=== PATIENT | female | born 1965 ===

== ENCOUNTER 2021-04-13 08:15 | Inpatient (IN) | payer OTHER ==
[~2021-04-13] VITALS: Ht 165.1 cm; Wt 123.4 kg
[2021-04-13] MEDS ORDERED: EFFEXOR XR150 MG PO (09:58)
[2021-04-13] MEDS ORDERED: CLONAZEPAM2 MG PO (09:58)
[2021-04-13] MEDS ORDERED: SEROQUEL400 MG PO (09:59)
[2021-04-13] MEDS ORDERED: PROSOM PO (09:59)
[2021-04-13] MEDS ORDERED: SYNTHROID125 MCG PO (10:00)
[2021-04-18] MEDS ORDERED: ESTAZOLAM2 MG (11:48)
[2021-04-18] MEDS ORDERED: FLONASE16 GM (11:49)
[2021-04-18] MEDS ORDERED: ZANAFLEX2 MG (11:49)
[2021-04-18] MEDS ORDERED: DICLOFENAC POTA50 MG (11:49)
[2021-04-18] MEDS ORDERED: LISINOPRIL10 MG (11:49)
[2021-04-18] MEDS ORDERED: GABAPENTIN100 M2 (11:49)
[2021-04-18] MEDS ORDERED: LEVOCETIRIZINE D5 MG (11:49)
[2021-04-18] MEDS ORDERED: ATORVASTATIN CA40 MG (11:49)
[2021-04-18] MEDS ORDERED: SPIRIVA RESPIMAT4 G1 (11:50)
[2021-04-20] MEDS ORDERED: ELIQUIS2.5 MG PO (18:00)
[2021-04-20] MEDS ORDERED: PERCOCET 5-3251 EACH PO (18:00)
[2021-04-20] MEDS ORDERED: DUI500 PO (18:00)
== END 2021-04-20 19:45 | disposition home or self-care (01) | DRG 470 ==
LOC: SURG 04-18 07:15 → O/R 04-18 07:15 → SURH 04-18 08:15 → SURG 04-18 14:45
PROVIDERS: ADMIT Orthopaedic Surgery; ATTEND Orthopaedic Surgery
PROC: 0SRC0J9 Replacement of Right Knee Joint with Synthetic Substitute, Cemented, Open Approach (ICD-10-PCS; principal; 2021-04-18 09:45)
DX: M17.11 Unilateral primary osteoarthritis, right knee (principal); M81.0 Age-related osteoporosis without current pathological fracture